=== PATIENT | male | born 1975 | race Caucasian/White ===

== ENCOUNTER 2016-12-05 08:48 | Emergency (ER) | payer SELFPAY ==
[~2016-12-05] VITALS: Ht 165.1 cm; Wt 58.7 kg
[~2016-12-05 08:48] MED LIST: PREDNISONE20 MG PO; VALIUM5 MG PO
[2016-12-05 09:44] LABS: HEMATOCRIT 45.7 % (38.0-50.0); MCH 31.8 PG (29.0-34.0); MCHC 36.8 G/DL (30.0-36.0); MCV 86.6 FL (86-99); MEAN PLAT.VOLUME 8.9 uM^3 (9.0-12.4); PLATELET COUNT 264 K/uL (156-360); RBC DIS.WIDTH-CV 11.9 % (11.8-14.6); RBC DIS.WIDTH-SD 37.7 % (39-53); RED BLOOD COUNT 5.28 M/uL (4.00-5.50); WHITE BLOOD COUNT 9.1 K/uL (4.1-10.2)
[2016-12-05 09:56] LABS: CHLORIDE 96 mEq/L (99-109); POTASSIUM 3.7 mEq/L (3.7-5.4); SODIUM 136 mEq/L (136-147)
[2016-12-05 09:59] LABS: GLUCOSE 100 mg/dL (70-99)
[2016-12-05 10:00] LABS: ANION GAP 18 MEQ/L (2-14)
[2016-12-05 10:01] LABS: TOTAL BILIRUBIN 1.3 mg/dL (0.0-1.0)
[2016-12-05 10:02] LABS: ALKALINE PHOSPHATASE 53 IU/L (3-129); GFR ESTIMATE (CALCULATED) 39 mL/min/
[2016-12-05 10:03] LABS: UREA NITROGEN (BUN) 41 mg/dL (9-23)
[2016-12-05 11:03] LABS: LIPASE 18 U/L (1.0-51.0)
[2016-12-05 11:04] LABS: CREATINE KINASE 279 IU/L (1-294); TOTAL CK 279 IU/L (1-294)
[2016-12-05 11:09] LABS: CK-MB 2.8 ng/mL (0.0-4.9)
[2016-12-05 15:50] VITALS: BP 111/82
== END 2016-12-05 15:50 | disposition left against medical advice (07) ==
LOC: EME 08:48
DX: T67.5XXA Heat exhaustion, unspecified, initial encounter (principal)
CPT/HCPCS: 80053; 81003; 82550; 82553; 83690; 85027; 99281; 99284; J7030